=== PATIENT | female | born 1970 | race Caucasian/White ===

== ENCOUNTER 2018-08-22 00:46 | Emergency (ER) | payer OTHER ==
[~2018-08-22] VITALS: Ht 165.1 cm; Wt 89.8 kg
[2018-08-22 01:00] VITALS: BP_SYST 120
[2018-08-22] MEDS ORDERED: DULO60CA41 PO (01:12)
[2018-08-22] MEDS ORDERED: KETOROLAC TROMETHAMINE 60 MG/2 ML VIAL IM ONE (01:15)
[2018-08-22 01:50] VITALS: BP_SYST 116
== END 2018-08-22 01:50 | disposition home or self-care (01) ==
LOC: SED 00:46
DX: M54.12 Radiculopathy, cervical region (principal); F32.9 Major depressive disorder, single episode, unspecified; Z88.5 Allergy status to narcotic agent; Z88.6 Allergy status to analgesic agent
CPT/HCPCS: 72040; 96372; 99283; J1885